=== PATIENT | female | born 1965 | race Caucasian/White ===

== ENCOUNTER 2024-03-06 03:47 | Inpatient (IN) | payer BC ==
[~2024-03-06] VITALS: Ht 152.4 cm; Wt 60.5 kg
[2024-03-06 03:51] VITALS: O2SAT 99
[2024-03-06] MEDS: ONDANSETRON HCL 4MG/2ML INJ IV STA (04:48)
[2024-03-06] MEDS: SODIUM CHLORIDE 0.9% 1,000 ML IV ONE (04:48)
[2024-03-06] MEDS: MORPHINE SULFATE 4 MG/ML INJ (FOR IV/IM USE) IV STA (04:48)
[2024-03-06 04:49] LABS: BASOPHILS % 0.6 % (0.0-2.0); EOSINOPHILS % 1.7 % (0.0-5.0); HEMATOCRIT. 39.2 % (36.0-48.0); HEMOGLOBIN. 13.2 g/dL (12.0-16.0); LYMPHOCYTES % 16.7 % (20.0-50.0); MEAN CORPUSCULAR HEMOGLOBIN 30.9 pg (28.0-32.0); MEAN CORPUSCULAR HGB CONC 33.8 g/dL (31.0-37.0); MEAN CORPUSCULAR VOLUME 91.7 fL (81.0-99.0); MEAN PLATELET VOLUME 8.5 fl (7.4-10.4); MONOCYTES % 8.5 % (2.0-8.0); NEUTROPHILS % 72.5 % (40.0-76.0); PLATELET 307 x1000/uL (130-400); RED BLOOD CELL COUNT 4.27 mill/uL (4.2-5.4); RED CELL DISTRIBUTION WIDTH 13.5 % (11.6-14.6); WHITE BLOOD COUNT 6.8 x1000/uL (4.5-11.0)
[2024-03-06] MEDS: FAMOTIDINE 20MG/2ML VIAL IV STA (05:08)
[2024-03-06 05:41] LABS: CHLORIDE 103 mEq/L (98-107); POTASSIUM 3.7 mEq/L (3.5-5.1); SODIUM 136 mEq/L (136-145)
[2024-03-06 05:42] LABS: CALCIUM 9.3 mg/dL (8.7-10.4); CARBON DIOXIDE 25 mEq/L (21-32)
[2024-03-06 05:46] LABS: CREATININE 0.7 mg/dL (0.6-1.0)
[2024-03-06 05:47] LABS: GLUCOSE 101 mg/dL (70-105); UREA NITROGEN BLOOD 18 mg/dL (9-23)
[2024-03-06] MEDS ORDERED: NALOXONE HCL 0.4MG/ML VIAL IV PRN (08:45)
[2024-03-06] MEDS: IOHEXOL-300 100 ML BOTTLE ONE (10:38)
[2024-03-06 10:45] VITALS: BP 136/68; PULSE 83; RESP 18; TEMP 97.9
[2024-03-06] MEDS: MORPHINE SULFATE 2 MG/ML INJ (NOT FOR IM USE) IV PRN (10:47)
[2024-03-06] MEDS: ONDANSETRON HCL 4MG/2ML INJ IV PRN (10:47)
[2024-03-06] MEDS ORDERED: CLONIDINE 0.1MG TABLET PO PRN (11:00)
[2024-03-06] MEDS ORDERED: DOCUSATE SODIUM 100MG CAPSULE PO PRN (11:00)
[2024-03-06 12:05] VITALS: BP 128/77; PULSE 82; RESP 18; TEMP 98.1
[2024-03-06] MEDS: MVI, ADULT NO.1 10 ML, FOLIC ACID 1 MG, THIAMINE HCL 100 MG in SODIUM CHLORIDE 0.9% 1,0... IV SCH (13:01)
[2024-03-06] MEDS: ENOXAPARIN 40MG/0.4ML SYR SUBCUT SCH (13:01)
[2024-03-06] MEDS: ACETAMINOPHEN 325MG TABLET PO PRN (13:02)
[2024-03-06] MEDS ORDERED: SIMETHICONE 80MG TABLET CHEW PO PRN (14:30)
[2024-03-06] MEDS ORDERED: MORPHINE SULFATE 4 MG/ML INJ (FOR IV/IM USE) IM PRN (15:00)
[2024-03-06] MEDS: MORPHINE SULFATE 4 MG/ML INJ (FOR IV/IM USE) IV PRN (15:25)
[2024-03-06 15:29] VITALS: PULSE 83; RESP 18; TEMP 98.3
[2024-03-06 20:13] LABS: LDL CHOLESTEROL 84 mg/dL (5-100); TRIGLYCERIDE 61 mg/dL (0-150)
[2024-03-06 20:14] LABS: ALANINE AMINOTRANSFERASE 26 IU/L (10-49); ALBUMIN 4.4 g/dL (3.2-4.8); ASPARTATE AMINOTRANSFERASE 23 IU/L (<34); BILIRUBIN DIRECT 0.1 mg/dL (<=3.0); CHOLESTEROL 181 mg/dL (<200); HDL CHOLESTEROL 90 mg/dL (>65)
[2024-03-06 20:15] LABS: BILIRUBIN TOTAL 0.4 mg/dL (0.1-1.0); PROTEIN TOTAL 7.3 g/dL (6.0-8.3)
[2024-03-07 04:00] VITALS: BP_SYST 153; BP_SYST 155; BP_DIAS 83; PULSE 92; RESP 20; TEMP 97.5
[2024-03-07 08:00] VITALS: BP 118/73; PULSE 106; RESP 18; TEMP 97.1
[2024-03-07 10:00] VITALS: BP 118/73; PULSE 106; RESP 18; TEMP 97.1
[2024-03-07 12:00] VITALS: BP 112/70; PULSE 94; RESP 18; TEMP 97.7
[2024-03-07 12:12] LABS: BASOPHILS % 0.2 % (0.0-2.0); EOSINOPHILS % 0.1 % (0.0-5.0); HEMATOCRIT. 41.7 % (36.0-48.0); HEMOGLOBIN. 13.8 g/dL (12.0-16.0); MEAN CORPUSCULAR HEMOGLOBIN 30.7 pg (28.0-32.0); MEAN CORPUSCULAR VOLUME 93.1 fL (81.0-99.0); MEAN PLATELET VOLUME 8.7 fl (7.4-10.4); MONOCYTES % 12.6 % (2.0-8.0); NEUTROPHILS % 75.1 % (40.0-76.0); PLATELET 286 x1000/uL (130-400); RED BLOOD CELL COUNT 4.48 mill/uL (4.2-5.4); RED CELL DISTRIBUTION WIDTH 13.3 % (11.6-14.6); WHITE BLOOD COUNT 9.3 x1000/uL (4.5-11.0)
[2024-03-07 12:24] LABS: CALCIUM 9.2 mg/dL (8.7-10.4); CHLORIDE 105 mEq/L (98-107); POTASSIUM 3.8 mEq/L (3.5-5.1); SODIUM 138 mEq/L (136-145)
[2024-03-07 12:25] LABS: CARBON DIOXIDE 25 mEq/L (21-32)
[2024-03-07 12:30] LABS: CREATININE 0.6 mg/dL (0.6-1.0); GLUCOSE 97 mg/dL (70-105); UREA NITROGEN BLOOD 13 mg/dL (9-23)
[2024-03-07 15:34] LABS: CLARITY URINE CLOUDY (CLEAR); COLOR URINE YELLOW (YELLOW); GLUCOSE URINE NEGATIVE (NEGATIVE); KETONES URINE 2+ (NEGATIVE); LEUKOCYTE ESTERASE URINE NEGATIVE (NEGATIVE); NITRITE URINE POSITIVE (NEGATIVE); OCCULT BLOOD URINE 2+ (NEGATIVE); PH URINE 5.5 (4.5-8.0); PROTEIN URINE TRACE (NEGATIVE); SPECIFIC GRAVITY URINE 1.028 (1.005-1.030); UROBILINOGEN URINE 0.2 E.U./dL (0.2-1.0)
[2024-03-07 15:46] LABS: SQUAMOUS EPITHELIAL CELL URINE FEW /lpf (RARE/1+)
[2024-03-07 15:47] LABS: BACTERIA URINE 2+
[2024-03-07 16:00] VITALS: BP 112/69; PULSE 90; RESP 18; TEMP 97.4
[2024-03-07 20:00] VITALS: BP 132/66; PULSE 88; RESP 18; TEMP 98.2
[2024-03-08] VITALS: BP 141/79; PULSE 92; RESP 20; TEMP 98.7
[2024-03-08 08:00] VITALS: BP 136/80; PULSE 90; RESP 17; TEMP 98
== END 2024-03-08 08:40 | disposition left against medical advice (07) | DRG 392 ==
LOC: ER 03:47 → 5WST 05:21 → EDBEDREQ 05:47 → EDBEDREQSVC 05:47 → EDBEDREQTM 05:47 → 7EST 03-07 03:47
PROVIDERS: ADMIT Internal Medicine; ATTEND Internal Medicine
DX: K29.00 Acute gastritis without bleeding (principal); N39.0 Urinary tract infection, site not specified; K76.0 Fatty (change of) liver, not elsewhere classified; Z53.29 Procedure and treatment not carried out because of patient's decision for other reasons; Z88.8 Allergy status to other drugs, medicaments and biological substances; Z79.899 Other long term (current) drug therapy
CPT/HCPCS: 36415; 71045; 74177; 76705; 80048; 80061; 80076; 81003; 83605; 85025; 93005; 99285; J1650; J2270; J2405; J3411; J3490; J7030; Q9967